=== PATIENT | female | born 1990 | race Caucasian/White ===

== ENCOUNTER 2018-10-02 16:00 | Emergency (ER) | payer BC, MEDICAID ==
[~2018-10-02] VITALS: Ht 165.1 cm; Wt 113.4 kg
[2018-10-02 16:03] VITALS: Ht 165.1 cm; Wt 113.4 kg
[2018-10-02 17:48] VITALS: BP 115/81
== END 2018-10-02 17:48 | disposition home or self-care (01) ==
LOC: ED 16:00
DX: T78.1XXA Other adverse food reactions, not elsewhere classified, initial encounter (principal); X58.XXXA Exposure to other specified factors, initial encounter
CPT/HCPCS: J7512; Q0163